=== PATIENT | male | born 2005 | race Caucasian/White ===

== ENCOUNTER 2024-02-09 15:33 | Emergency (ER) | payer OTHER, SELFPAY ==
[2024-02-09 15:42] VITALS: BP 125/84; PULSE 86; RESP 20; TEMP 37; O2SAT 100
--- NOTE | 2024-02-09 16:02 | ED.GENADULT ---
HPI - General Adult General Stated complaint: chin/jaw sore/chest aches Time Seen by Provider: 02/09/24 15:57 Source: patient Mode of arrival: ambulatory Limitations: no limitations History of Present Illness HPI narrative: 18-year-old male presents with concern for sore jaw and chin area that started today, he also reports sore throat. He also reports on the way here he had some mild chest discomfort with a feeling of fast heartbeat. He denies any shortness of breath or cough. He denies fever, body aches, chills, sweats, runny nose, stuffy nose. He denies current chest pain. He denies injury or trauma. He denies dental pain. He denies swelling, redness, warmth in his chin or jaw. MD complaint: Chin pain Related Data Home Medications Medication Instructions Recorded Confirmed isotretinoin 10 mg capsule See Rx Instructions .Route .COMPLEX 02/09/24 02/09/24 (Accutane) Allergies Allergy/AdvReac Type Severity Reaction Status Date / Time No Known Allergies Allergy Unverified 06/22/15 22:29 Review of Systems Review of Systems: CONSTITUTIONAL: Denies malaise, chills, sweats, or fever. EYES: Denies visual changes, redness, or discharge. ENT: Denies rhinorrhea, congestion, sinus pain, otalgia. Reports mild sore throat. CARDIOVASCULAR: Reports 1 episode of mild chest pain, palpitations. Denies edema. RESPIRATORY: Denies cough or dyspnea. GASTROINTESTINAL: Denies abdominal pain, nausea, vomiting, diarrhea, SKIN: Denies rash or itching, redness, warmth, bruising MUSCULOSKELETAL: Denies back pain, joint pain, or myalgia. NEUROLOGIC: Denies numbness, weakness, or headache. PSYCHIATRIC: Reports history of anxiety All systems reviewed & are unremarkable except as noted in HPI and below PMFSH Comments At time of signature, agree with nursing past medical, surgical, social and family history. There is no relevant family history pertinent to the presenting complaint Exam Narrative: GENERAL: Well-appearing, well-nourished, and in no acute distress. HEAD: Normocephalic, atraumatic. EYES: PERRLA, sclera clear, and EOMI. No nystagmus. ENT: Nares clear, turbinates pink, no rhinorrhea or epistaxis. Mucous membranes moist. TM pearly aldrich with sharp light reflex bilaterally; no tragal tenderness. Oropharynx without erythema or lesions. Tonsils not enlarged and without exudate. NECK: Supple. No lymphadenopathy. No jugular venous distension, thyromegaly, or carotid bruits. Carotids were easily palpable bilaterally. CHEST: No respiratory distress. Clear to auscultation. No bony deformities, no asymmetry. Speaks in full sentences. HEART: Regular rate and rhythm. No murmur heard. Normal peripheral pulses. ABDOMEN: Soft, nontender, nondistended, normal active bowel sounds, no palpable masses. EXTREMITIES: Normal range of motion. No edema. Normal strength and sensation. SKIN: Warm, dry, no visible rash. NEURO: Alert and oriented x3. No focal deficits. Cranial nerves II through XII grossly intact PSYCH: Normal mood and affect Course Course Emergency Course: Patient is aware of diagnosis, understands and agrees to treatment plan. Anticipatory guidance given. Patient agrees to follow-up as directed and is aware of reasons to seek care at the emergency department. Portions of this record may have been created with voice recognition software Level of Care: Express Care Visit Vital Signs Vital signs: Vital Signs Temperature 98.6 F 02/09/24 15:42 Pulse Rate 86 02/09/24 15:42 Respiratory Rate 20 02/09/24 15:42 Blood Pressure 125/84 02/09/24 15:42 Pulse Oximetry 100 02/09/24 15:42 Oxygen Delivery Room Air 02/09/24 15:42 Temperature 98.6 F 02/09/24 15:42 Pulse Rate 86 02/09/24 15:42 Respiratory Rate 20 02/09/24 15:42 Blood Pressure 125/84 02/09/24 15:42 Pulse Oximetry 100 02/09/24 15:42 Oxygen Delivery Room Air 02/09/24 15:42 Reviewed. Medical Decision Making MDM Narrative Medic
[2024-02-09 16:18] LABS: EDSTREPNEGPOS1 Presumptive Negative
== END 2024-02-09 16:20 | disposition home or self-care (01) ==
PROVIDERS: Emergency Provider Nurse Practitioner; PCP Internal Medicine
DX: Z71.1 Person with feared health complaint in whom no diagnosis is made (principal)
CPT/HCPCS: 87081; 87880; 99203; G0463

== ENCOUNTER 2024-04-28 17:50 | Emergency (ER) | payer OTHER, SELFPAY ==
[2024-04-28 18:10] VITALS: BP 146/76; PULSE 77; RESP 17; TEMP 36.8; O2SAT 100
--- NOTE | 2024-04-28 21:23 | ED.EAR ---
HPI - Ear Problem General Chief complaint: Ear Stated complaint: rt ear pain Time Seen by Provider: 04/28/24 18:15 Source: patient, RN notes reviewed and old records reviewed Mode of arrival: ambulatory Limitations: no limitations History of Present Illness HPI Narrative: 19-year-old male to Express Care with complaint of right ear pain. Patient states that he started using debrox today and clean the ear with a Q-tip after his shower and noticed acute onset of right ear discomfort and decreased hearing. Patient denies recent illness, allergies, pertinent medical history , discharge from ear. Patient resting in exam room in no acute distress. Related Data Allergies Allergy/AdvReac Type Severity Reaction Status Date / Time No Known Allergies Allergy Unverified 06/22/15 22:29 Review of Systems Review of Systems: All systems reviewed & are unremarkable except as noted in HPI and below Constitutional: Constitutional: Reports no additional constitutional complaints Eyes: Eyes: Reports no additional eye complaints ENT: Reports as per HPI and Reports otalgia ( right) Cardiovascular: Cardiovascular: Reports no additional cardiovascular complaints, Denies chest pain and Denies dyspnea Respiratory: Respiratory: Reports no additional respiratory complaints, Denies cough and Denies dyspnea Musculoskeletal: Musculoskeletal: Reports no additional musculoskeletal complaints Neurologic: Reports system reviewed and no additional complaints, except as documented Psychiatric: Psychiatric: Reports no additional psychiatric complaints PMFSH Comments At the time of my signature, I reviewed and agree with the nursing past medical, surgical, social, and family history. There is no relevant family history pertinent to the patient complaint. Exam Const: General: cooperative, healthy appearing, comfortable, no acute distress, alert and well nourished Nutritional Appearance: well nourished Orientation/consciousness: patient oriented x3 Limitations: no limitations HENMT: Head: normal to inspection Ears: Abnormal EAC present cerumen impaction on the right and excessive cerumen on the left and TM abnormal erythematous on the right, with fluid behind the TM on the right and with loss of landmarks on the right Face/Nose/Sinus: Normal external nose present, Normal nares present, normal facial exam, No erythema and No edema Face and sinus: normal facial exam, no erythema and no edema Mouth: Yes Normal oral and palatal mucosa present Eyes: General: appearance normal, both eyes and all related structures Neck: Neck: normal visual inspection, full ROM and no meningeal signs Chest: Chest palpation & inspection: normal inspection of the chest Resp: Effort & Inspection: normal respiratory effort and able to speak in complete sentences Auscultation: clear to auscultation bilaterally Cardio: Jugular venous distension: no JVD Rate: regular rate Rhythm: regular rhythm Back/Spine/Pelvis: Cervical Spine: cervical ROM normal Skin: General skin exam: normal color, no rashes or lesions noted and turgor normal Neuro: General: patient oriented x3, gait normal, moves all extremities and no meningeal signs Speech: normal speech Gait exam (Neuro): Normal gait present Extrem: General: normal to inspection, full ROM and capillary refill normal Psych: Appearance: grossly normal and well kempt Course Course Emergency Course: Some parts of this dictation were generated by voice recognition software and may contain typographical and/or grammatical inaccuracies. Level of Care: Express Care Visit Vital Signs Vital signs: Vital Signs Temperature 36.8 C 04/28/24 18:10 Pulse Rate 77 04/28/24 18:10 Respiratory Rate 17 04/28/24 18:10 Blood Pressure 146/76 H 04/28/24 18:10 Pulse Oximetry 100 04/28/24 18:10 Oxygen Delivery Room Air 04/28/24 18:10 Temperature 36.8 C 04/28/24 18:10 Pulse Rate 77 04/28/24 18:10 Respiratory Rate
== END 2024-04-28 18:35 | disposition home or self-care (01) ==
PROVIDERS: Emergency Provider Nurse Practitioner Family; PCP Internal Medicine
DX: H66.91 Otitis media, unspecified, right ear (principal); H61.21 Impacted cerumen, right ear
CPT/HCPCS: 69210; 99213; G0463